=== PATIENT | male | born 1975 | race Caucasian/White ===

== ENCOUNTER 2017-09-23 03:11 | Inpatient (IN) | payer MEDICAID ==
[~2017-09-23] VITALS: Ht 167.6 cm; Wt 65.8 kg
--- NOTE | 2017-09-23 03:15 | NUR ---
PT TO ER BED 4. PT BIB [facility] FROM [facility] C/O CHEST PAIN X 45 MIN "ON AND OFF". 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 VSS/RESP EVEN UNLABORED/NAD NOTED/SKIN WARM AND DRY/DENIES N-V-D/ AFEBRILE/AOX4. AWAITING MD LECHUGA.
--- NOTE | 2017-09-23 03:20 | NUR ---
EMT AT BEDSIDE FOR EKG.
--- NOTE | 2017-09-23 03:45 | NUR ---
AT BEDSIDE FOR EVAL.
[2017-09-23] MEDS ORDERED: NITROGLYCERIN PACKET 1 GM PACKET ONE (03:51)
[2017-09-23] MEDS ORDERED: ASPIRIN 81 MG TAB.CHEW ONE (03:51)
[2017-09-23] MEDS ORDERED: ASPIRIN 81 MG TAB.CHEW PO ONE (04:00)
[2017-09-23] MEDS ORDERED: NITROGLYCERIN PACKET 1 GM PACKET TD ONE (04:00)
--- NOTE | 2017-09-23 04:07 | NUR ---
LAB AT BEDSIDE FOR DRAW.
[2017-09-23 04:09] LABS: BASOPHILS % (AUTO) 0.4 % (0.0-2.0); EOSINOPHILS % (AUTO) 17.2 % (0.0-6.0); HEMATOCRIT 37 % (39-51); HEMOGLOBIN 12.6 g/dL (13.5-17.5); MEAN CORPUSCULAR HEMOGLOBIN 32 PG (26.0-33.0); MEAN CORPUSCULAR HGB CONC 35 g/dl (31.0-36.0); MEAN CORPUSCULAR VOLUME 94 fL (80-96); MONOCYTES # (AUTO) 0.8 /CMM (0.1-1.30); MONOCYTES % (AUTO) 6.6 % (2.0-12.0); NEUTROPHILS # (AUTO) 6.8 /CMM (1.8-8.9); NEUTROPHILS % (AUTO) 58.8 % (43.0-81.0); PLATELET COUNT (AUTO) 278 /CMM (150-450); RDW COEFFICIENT OF VARIATION 13.7 (11.5-15.0); RED BLOOD CELL COUNT(AUTO) 3.89 MIL/uL (4.5-6.0); WHITE BLOOD COUNT (AUTO) 11.5 K/uL (4.3-11.0)
[2017-09-23 04:21] LABS: CALCIUM, SERUM 9.4 mg/dL (8.5-10.1); CARBON DIOXIDE 24 mmol/L (21-32); CHLORIDE 100 mmol/L (98-107); CREATININE 1.7 mg/dL (0.6-1.3); GLUCOSE 105 mg/dL (74-106); POTASSIUM 3.8 mmol/L (3.5-5.1); SODIUM SERUM 134 mmol/L (136-145); UREA NITROGEN, BLOOD 27 mg/dL (7-18)
[2017-09-23 04:26] LABS: INR 0.91 (0.87-1.13)
[2017-09-23 04:28] LABS: TROPONIN I < 0.017 ng/mL (0.00-0.056)
[2017-09-23 04:33] LABS: ALANINE AMINOTRANSFERASE 26 U/L (12-78); ALBUMIN 3.3 g/dL (3.4-5.0); ALKALINE PHOSPHATASE 111 U/L (46-116); ASPARTATE AMINOTRANSFERASE 12 U/L (15-37); B-TYPE NATRIURETIC PEPTIDE 58 PG/ML (0-125); BILIRUBIN,DIRECT 0.1 mg/dL (0.0-0.2); BILIRUBIN,TOTAL 0.3 mg/dL (0.2-1.0); TOTAL PROTEIN, SERUM 7.7 g/dL (6.4-8.2)
[2017-09-23 04:50] LABS: EOSINOPHILS % (MANUAL) 14 % (0-4); LYMPHOCYTES % (MANUAL) 17 % (16-48); MONOCYTES % (MANUAL) 5 % (0-11.0); NEUTROPHILS % (MANUAL) 64 (42-76)
--- NOTE | 2017-09-23 05:18 | NUR ---
PT RESTING QUIETLY, VSS/RESP EVEN UNLABORED. AROUSES EASILY TO VOICE.
--- NOTE | 2017-09-23 06:10 | NUR ---
PT TO CT VIA STRETCHER, VSS.
--- NOTE | 2017-09-23 06:30 | NUR ---
PT BACK FROM CT.
--- NOTE | 2017-09-23 07:23 | NUR ---
REPORT GIVEN TO REINALDO GIRARD FOR BARBER.
[2017-09-23] MEDS ORDERED: LACT10SO PO (07:37)
[2017-09-23] MEDS ORDERED: TOLT4CAP PO (07:37)
[2017-09-23] MEDS ORDERED: HYDR-552 PO (07:37)
[2017-09-23] MEDS ORDERED: CLON0.1T PO (07:37)
[2017-09-23] MEDS ORDERED: SIME80TA15 PO (07:37)
[2017-09-23] MEDS ORDERED: NA P133E RC (07:37)
[2017-09-23] MEDS ORDERED: ASCO500T9 PO (07:37)
[2017-09-23] MEDS ORDERED: LEVO50TA8 PO (07:37)
[2017-09-23] MEDS ORDERED: CYCL10TA9 PO (07:37)
[2017-09-23] MEDS ORDERED: PROM25TA15 PO (07:37)
[2017-09-23] MEDS ORDERED: FERR325T23 PO (07:37)
[2017-09-23] MEDS ORDERED: ACET-868 PO (07:37)
[2017-09-23] MEDS ORDERED: MULT-213 PO (07:37)
[2017-09-23] MEDS ORDERED: DOCU-141 PO (07:37)
[2017-09-23] MEDS ORDERED: POLY17PO4 PO (07:37)
[2017-09-23] MEDS ORDERED: BISA10SU8 RC (07:37)
[2017-09-23] MEDS ORDERED: THIA100T13 PO (07:37)
[2017-09-23] MEDS ORDERED: ENOX40DI SQ (07:37)
[2017-09-23] MEDS ORDERED: ASPI-1169 PO (07:37)
[2017-09-23] MEDS ORDERED: CRAN3875 PO (07:37)
[2017-09-23] MEDS ORDERED: CRAN425C6 PO (07:37)
[2017-09-23] MEDS ORDERED: IPRA3AMP IH (07:37)
[2017-09-23] MEDS ORDERED: MAGN400O6 PO (07:37)
[2017-09-23] MEDS ORDERED: MELA3TAB PO (07:37)
--- NOTE | 2017-09-23 08:34 | NUR ---
PAGED DR. SCHMIDT ([facility]) FOR DR BOWMAN
--- NOTE | 2017-09-23 08:41 | NUR ---
DR PARKER TALKING TO DR SCHMIDT.
[2017-09-23] MEDS ORDERED: ENOXAPARIN SODIUM 40 MG/0.4 ML DISP.SYRIN SQ SCH (09:30)
[2017-09-23] MEDS ORDERED: HYDROCODONE/APAP 5/325MG 1 EACH TABLET PO PRN ×3 (09:30→10:15)
[2017-09-23] MEDS ORDERED: ZOLPIDEM TARTRATE 5 MG TABLET PO PRN ×2 (09:30→10:15)
[2017-09-23] MEDS ORDERED: ONDANSETRON HCL/PF 4 MG/2 ML VIAL IVP PRN ×2 (09:30→10:15)
[2017-09-23] MEDS ORDERED: PROMETHAZINE HCL 25 MG TABLET PO PRN ×2 (09:30→10:15)
[2017-09-23] MEDS ORDERED: POLYETHYLENE GLYCOL 3350 17 GM POWD.PACK PO PRN ×2 (09:30→10:15)
[2017-09-23] MEDS ORDERED: BISACODYL SUPP (10 MG) 10 MG/SUPP.RECT SUPP.RECT RC PRN ×2 (09:30→10:15)
[2017-09-23] MEDS ORDERED: BISACODYL SUPP (10 MG) 10 MG/SUPP.RECT SUPP.RECT RC ONE ×3 (09:30→12:30)
[2017-09-23] MEDS ORDERED: Z GUARD REMEDY 2 OZ OINT TP PRN ×2 (09:30→10:15)
[2017-09-23] MEDS ORDERED: ACETAMINOPHEN 325 MG TABLET PO PRN ×2 (09:30→10:15)
[2017-09-23] MEDS ORDERED: MAGNESIUM CITRATE 296 ML BOTTLE PO ONE ×3 (09:30→12:30)
[2017-09-23] MEDS ORDERED: NA PHOS,M-B/NA PHOS,DI-BA 1 EA ENEMA RC PRN ×2 (09:30→10:15)
[2017-09-23] MEDS ORDERED: MAGNESIUM HYDROXIDE 30 ML UDC PO PRN ×4 (09:30→10:15)
[2017-09-23] MEDS ORDERED: MAG HYDROX/AL HYDROX/SIMETH 30 ML UDC PO PRN ×2 (09:30→10:15)
--- NOTE | 2017-09-23 09:48 | NUR ---
REPORT GIVEN TO MITA NAJERA FOR BARBER UPON ADMISSION.
[2017-09-23 10:00] VITALS: BP 131/86
--- NOTE | 2017-09-23 10:05 | NUR ---
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 A/O X 4. NO SIGNS OF ACUTE DISTRESS. NO COMPLAIN OF PAIN OR DISCOMFORT. QUADRIPLEGIC. INCONTINENT OF BOWEL AND BLADDER. NOTED WITH F/C, INTACT AND DRAINING WELL. ALL NEEDS ATTENDED TO. CALL LIGHT WITHIN REACH. WILL CONTINUE TO MONITOR TO ENSURE SAFETY.
--- NOTE | 2017-09-23 10:11 | NUR ---
TRANSFERRED TO FLOOR IN STABLE CONDIITION
[2017-09-23] MEDS ORDERED: POTASSIUM CHLORIDE 20 MEQ TAB.PRT.SR PO SCH ×2 (11:00→12:30)
[2017-09-23 11:44] LABS: THYROID STIMULATING HORMONE 2.809 uIU/mL (0.358-3.74)
[2017-09-23] MEDS ORDERED: CLONIDINE HCL 0.1 MG TABLET PO SCH (12:00)
[2017-09-23] MEDS: LACTULOSE 10 G/15 ML UDC (PYXIS) PO SCH ×2 (12:28→17:58)
[2017-09-23] MEDS: TOLTERODINE 2 MG TABLET PO SCH (12:28)
[2017-09-23] MEDS: SIMETHICONE 80 MG TAB.CHEW PO SCH ×2 (12:29→17:58)
[2017-09-23] MEDS: ENOXAPARIN SODIUM 40 MG/0.4 ML DISP.SYRIN SQ SCH (12:29)
[2017-09-23] MEDS: CLONIDINE HCL 0.1 MG TABLET PO SCH ×2 (12:30→17:58)
[2017-09-23] MEDS: CYCLOBENZAPRINE 10 MG TABLET PO SCH ×2 (12:30→17:58)
[2017-09-23] MEDS ORDERED: SIMETHICONE 80 MG TAB.CHEW PO SCH (13:00)
[2017-09-23] MEDS ORDERED: CYCLOBENZAPRINE 10 MG TABLET PO SCH (13:00)
[2017-09-23 13:04] VITALS: BP 131/86
[2017-09-23] MEDS: IV NS 0.9% 1,000 ML IV PRN (13:28)
[2017-09-23 16:00] VITALS: BP 127/84
[2017-09-23] MEDS: HYDROCODONE/APAP 5/325MG 1 EACH TABLET PO PRN (18:00)
--- NOTE | 2017-09-23 18:47 | NUR ---
MS/RN CLOSING NOTE PATIENT IN BED IN STABLE CONDITION. A/O X 3. NO SIGNS OF ACUTE DISTRESS. NO COMPLAIN OF PAIN OR DISCOMFORT. ALL NEEDS ATTENDED TO. CALL LIGHT WITHIN REACH. WILL ENDORSE TO NEXT SHIFT FOR CONTINUITY OF CARE.
--- NOTE | 2017-09-23 19:20 | NUR ---
RN OPENING NOTES PT RESTING IN BED. NO COMPLAINTS OF PAIN, SOB OR DISTRESS AT THIS TIME. SAFETY PRECAUTIONS IN PLACE. WILL CONTINUE TO MONITOR.
[2017-09-23 21:29] VITALS: BP 93/69
[2017-09-23] MEDS: DOCUSATE SODIUM 100 MG CAPSULE PO SCH (21:51)
[2017-09-23] MEDS ORDERED: Medication Not On Formulary EA (Melatonin 3 MG) PO SCH (22:00)
[2017-09-23] MEDS ORDERED: DOCUSATE SODIUM 100 MG CAPSULE PO SCH (22:00)
[2017-09-23] MEDS: IPRATROPIUM NEB FS 0.5 MG/2.5 ML AMPUL.NEB NEB SCH (23:29)
[2017-09-23] MEDS: ALBUTEROL FS 2.5 MG/0.5 ML VIAL.NEB NEB SCH (23:29)
[2017-09-24] MEDS: CLONIDINE HCL 0.1 MG TABLET PO SCH ×4 (00:56→18:51)
[2017-09-24] MEDS: IV NS 0.9% 1,000 ML IV PRN ×2 (04:36→20:32)
--- NOTE | 2017-09-24 07:04 | NUR ---
RN CLOSING NOTES PT AWAKE IN BED. NO COMPLAINTS OF PAIN, DISTRESS OR SOB. ALL NEEDS MET OVERNIGHT. SAFETY PRECAUTIONS IN PLACE. BED IN LOW, LOCKED POSITION, CALL LIGHT WITHIN REACH. WILL ENDORSE TO DAY SHIFT NURSE FOR CONTINUITY OF CARE.
[2017-09-24] MEDS ORDERED: LEVOTHYROXINE SODIUM 50 MCG TABLET PO SCH (07:30)
--- NOTE | 2017-09-24 07:30 | NUR ---
PT RECEIVED RESTING COMFORTABLY IN BED WITH EYES CLOSED. NO S/S OR C/O PAIN OR DISTRESS NOTED. SIDE RAILS UP X2, CALL LIGHT LEFT WITHIN REACH. WILL CONTINUE PLAN OF CARE.
[2017-09-24 08:00] VITALS: BP 105/67
[2017-09-24] MEDS: ALBUTEROL FS 2.5 MG/0.5 ML VIAL.NEB NEB SCH ×3 (08:23→23:30)
[2017-09-24] MEDS: IPRATROPIUM NEB FS 0.5 MG/2.5 ML AMPUL.NEB NEB SCH ×3 (08:23→23:30)
[2017-09-24] MEDS: ASCORBIC ACID 500 MG TABLET PO SCH (08:32)
[2017-09-24] MEDS: ASPIRIN 81 MG TAB.CHEW PO SCH (08:32)
[2017-09-24] MEDS: MULTIVIT, IRON, MIN NO. 8, FA 1 TAB PO SCH (08:32)
[2017-09-24] MEDS: CYCLOBENZAPRINE 10 MG TABLET PO SCH ×3 (08:33→18:50)
[2017-09-24] MEDS: LEVOTHYROXINE SODIUM 50 MCG TABLET PO SCH (08:33)
[2017-09-24] MEDS: FERROUS SULFATE (325 MG) 325 MG/TAB TABLET PO SCH (08:33)
[2017-09-24] MEDS: TOLTERODINE 2 MG TABLET PO SCH (08:33)
[2017-09-24] MEDS: THIAMINE HCL 100 MG TABLET PO SCH (08:33)
[2017-09-24] MEDS: ENOXAPARIN SODIUM 40 MG/0.4 ML DISP.SYRIN SQ SCH (08:34)
[2017-09-24] MEDS: SIMETHICONE 80 MG TAB.CHEW PO SCH ×3 (08:34→18:51)
[2017-09-24 08:40] LABS: BASOPHILS # (AUTO) 0.1 /CMM (0.0-0.2); BASOPHILS % (AUTO) 0.6 % (0.0-2.0); EOSINOPHILS # (AUTO) 1.5 /CMM (0.0-0.7); EOSINOPHILS % (AUTO) 15.6 % (0.0-6.0); HEMATOCRIT 35 % (39-51); HEMOGLOBIN 11.8 g/dL (13.5-17.5); LYMPHOCYTES # (AUTO) 1.6 /CMM (0.8-4.8); LYMPHOCYTES % (AUTO) 16.1 % (20.0-44.0); MEAN CORPUSCULAR HEMOGLOBIN 32 PG (26.0-33.0); MEAN CORPUSCULAR HGB CONC 34 g/dl (31.0-36.0); MEAN CORPUSCULAR VOLUME 95 fL (80-96); MONOCYTES # (AUTO) 0.7 /CMM (0.1-1.30); MONOCYTES % (AUTO) 7.3 % (2.0-12.0); NEUTROPHILS % (AUTO) 60.4 % (43.0-81.0); PLATELET COUNT (AUTO) 243 /CMM (150-450); RDW COEFFICIENT OF VARIATION 13.7 (11.5-15.0); RED BLOOD CELL COUNT(AUTO) 3.68 MIL/uL (4.5-6.0); WHITE BLOOD COUNT (AUTO) 9.9 K/uL (4.3-11.0)
[2017-09-24 08:56] LABS: TROPONIN I < 0.017 ng/mL (0.00-0.056)
[2017-09-24 08:58] LABS: ALANINE AMINOTRANSFERASE 29 U/L (12-78); ALBUMIN 3.1 g/dL (3.4-5.0); ALKALINE PHOSPHATASE 99 U/L (46-116); ASPARTATE AMINOTRANSFERASE 16 U/L (15-37); BILIRUBIN,TOTAL 0.2 mg/dL (0.2-1.0); CALCIUM, SERUM 8.9 mg/dL (8.5-10.1); CARBON DIOXIDE 24 mmol/L (21-32); CHLORIDE 107 mmol/L (98-107); CREATININE 1.5 mg/dL (0.6-1.3); GLUCOSE 90 mg/dL (74-106); MAGNESIUM 2.4 mg/dL (1.8-2.4); POTASSIUM 4.7 mmol/L (3.5-5.1); SODIUM SERUM 141 mmol/L (136-145); TOTAL PROTEIN, SERUM 7.2 g/dL (6.4-8.2); UREA NITROGEN, BLOOD 24 mg/dL (7-18)
[2017-09-24] MEDS ORDERED: Medication Not On Formulary EA (Cran/Vitc/Mannose/Inulin/Brom (Uti-Stat Liquid) 30 ML) PO SCH (09:00)
[2017-09-24] MEDS ORDERED: ASPIRIN 81 MG TAB.CHEW PO SCH (09:00)
[2017-09-24] MEDS ORDERED: Medication Not On Formulary EA (Cranberry Extract (Cranberry) 425 MG) PO SCH (09:00)
[2017-09-24] MEDS ORDERED: ENOXAPARIN SODIUM 40 MG/0.4 ML DISP.SYRIN SQ SCH ×2 (09:00)
[2017-09-24] MEDS ORDERED: FERROUS SULFATE (325 MG) 325 MG/TAB TABLET PO SCH (09:00)
[2017-09-24] MEDS ORDERED: THIAMINE HCL 100 MG TABLET PO SCH (09:00)
[2017-09-24] MEDS ORDERED: ASCORBIC ACID 500 MG TABLET PO SCH (09:00)
[2017-09-24] MEDS: LACTULOSE 10 G/15 ML UDC (PYXIS) PO SCH ×2 (10:46→18:50)
[2017-09-24 16:00] VITALS: BP 135/90
--- NOTE | 2017-09-24 19:05 | NUR ---
RN OPENING NOTES PT AWAKE AND RESTING IN BED. PT IS QUADRIPLEGIC. NO COMPLAINTS OF PAIN, DISTRESS, OR SOB AT THIS TIME. PT HAS A CANTOR INTACT AND DRAINING WELL. PT HAS RIGHT WRIST #20, PATENT AND INTACT. SAFETY PRECAUTIONS IN PLACE. BED IN LOW, LOCKED POSITION, X2SIDE RAILS UP. WILL CONTINUE TO MONITOR.
--- NOTE | 2017-09-24 19:15 | NUR ---
CHANGE OF SHIFT REPORT PT RESTING COMFORTABLY IN BED. NO S/S OR C/O PAIN OR DISTRESS NOTED. SIDE RAILS UP X2, CALL LIGHT LEFT WITHIN REACH. PT KEPT CLEAN, DRY, AND COMFORTABLE. NO SIGNIFICANT CHANGES SINCE PREVIOUS SHIFT.
[2017-09-24 20:00] VITALS: BP 113/78
[2017-09-24] MEDS: DOCUSATE SODIUM 100 MG CAPSULE PO SCH (21:51)
--- NOTE | 2017-09-25 00:20 | NUR ---
RN NOTES PT COMPLAINING OF HEAD PAIN LEVEL 8/10. PT REQUESTED PRN NORCO 5. WILL ADMINISTER AND CONTINUE TO MONITOR.
[2017-09-25] MEDS: CLONIDINE HCL 0.1 MG TABLET PO SCH ×3 (00:22→13:20)
[2017-09-25] MEDS: HYDROCODONE/APAP 5/325MG 1 EACH TABLET PO PRN (00:23)
--- NOTE | 2017-09-25 06:40 | NUR ---
RN CLOSING NOTES PT RESTING IN BED. PT QUADRIPLEGIC. PRIMARILY CITIZEN OF [place] SPE[place]. NO COMPLAINTS OF PAIN, DISTRESS OR SOB AT THIS TIME. PT HAS A CANTOR CATHETER INTACT AND DRAINING WELL. PT HAS A RIGHT WRIST IV #20 INTACT AND RUNNING NS @70ML/HR. PT TOLERATING FLUID WELL. SAFETY PRECAUTIONS IN PLACE. BED IN LOWEST, LOCKED POSITION, AND CALL LIGHT WITHIN REACH. ALL PATIENT NEEDS MET. WILL ENDORSE TO DAY SHIFT NURSE FOR CONTINUITY OF CARE.
[2017-09-25 08:00] VITALS: BP 141/81
[2017-09-25] MEDS: ALBUTEROL FS 2.5 MG/0.5 ML VIAL.NEB NEB SCH ×2 (08:32→15:26)
[2017-09-25] MEDS: IPRATROPIUM NEB FS 0.5 MG/2.5 ML AMPUL.NEB NEB SCH ×2 (08:32→15:26)
[2017-09-25] MEDS: MULTIVIT, IRON, MIN NO. 8, FA 1 TAB PO SCH (09:00)
--- NOTE | 2017-09-25 09:00 | NUR ---
RECEIVED PT. ALERT AND ORIENTED X 4.COOPERATIVE.
[2017-09-25] MEDS: TOLTERODINE 2 MG TABLET PO SCH (09:27)
[2017-09-25] MEDS: FERROUS SULFATE (325 MG) 325 MG/TAB TABLET PO SCH (09:28)
[2017-09-25] MEDS: ASPIRIN 81 MG TAB.CHEW PO SCH (09:28)
[2017-09-25] MEDS: CYCLOBENZAPRINE 10 MG TABLET PO SCH ×2 (09:28→13:20)
[2017-09-25] MEDS: LACTULOSE 10 G/15 ML UDC (PYXIS) PO SCH (09:28)
[2017-09-25] MEDS: LEVOTHYROXINE SODIUM 50 MCG TABLET PO SCH (09:28)
[2017-09-25] MEDS: THIAMINE HCL 100 MG TABLET PO SCH (09:28)
[2017-09-25] MEDS: SIMETHICONE 80 MG TAB.CHEW PO SCH ×2 (09:28→13:20)
[2017-09-25] MEDS: ASCORBIC ACID 500 MG TABLET PO SCH (09:28)
[2017-09-25] MEDS: ENOXAPARIN SODIUM 40 MG/0.4 ML DISP.SYRIN SQ SCH (09:29)
--- NOTE | 2017-09-25 10:38 | NUR ---
WOUND CARE CONSULT: PT SEEN FOR RT LOWER EYELID RAISED RED BUMP. DEFER TO . DISCUSSED SKIN PROTECTION RECOMMENDATIONS WITH NURSING STAFF. WILL SEE PRN. AKERS IN AGREEMENT WITH PLAN OF CARE. Addendum: 09/25/17 at 1040 by FITO SUN WNDNU Amended: Links added.
--- NOTE | 2017-09-25 11:40 | NUR ---
METER MECHANIC NOTED SCAB ABOVE RT. EYE,ANTIBIOTIC ORDERED.
[2017-09-25] MEDS ORDERED: MUPIROCIN OINT 2% 22 GM TUBE SCH (13:00)
[2017-09-25 13:20] VITALS: BP 134/85
--- NOTE | 2017-09-25 14:19 | NUR ---
PT. REFUSING DISCHARGE PHOTOS.
--- NOTE | 2017-09-25 16:15 | NUR ---
IN TO BE Krista CASTILLO TODAY TO REHAB UNIT.REPORT TO GA AT FACILITY,AND REPORT TO AMB. DRIVERS.HEP LOCK OUT.TAKEN VIA AMB, TO FACILITY.
== END 2017-09-25 16:46 | DRG 254 ==
LOC: ER 03:12 → MED 10:22
PROVIDERS: ADMIT Internal Medicine; ATTEND Internal Medicine
DX: K59.00 Constipation, unspecified (principal); N17.0 Acute kidney failure with tubular necrosis; E43 Unspecified severe protein-calorie malnutrition; J96.10 Chronic respiratory failure, unspecified whether with hypoxia or hypercapnia; R53.2 Functional quadriplegia; Z93.0 Tracheostomy status; E11.22 Type 2 diabetes mellitus with diabetic chronic kidney disease; D68.59 Other primary thrombophilia; D72.1 Eosinophilia; I12.9 Hypertensive chronic kidney disease with stage 1 through stage 4 chronic kidney disease, or unspecified chronic kidney disease; N18.9 Chronic kidney disease, unspecified; Z87.820 Personal history of traumatic brain injury; Z73.1 Type A behavior pattern; E03.9 Hypothyroidism, unspecified; K21.9 Gastro-esophageal reflux disease without esophagitis; D63.8 Anemia in other chronic diseases classified elsewhere; H02.9 Unspecified disorder of eyelid
CPT/HCPCS: 36415; 71045-TC; 80048-TC; 80053-TC; 80061-TC; 80076-TC; 82306; 82728-TC; 83540-TC; 83735-TC; 83880; 84100-TC; 84439-TC; 84443-TC; 84484-TC; 85025-TC; 85652-TC; 85730-TC; 87081-TC; 93307-TC; A4606; A6402; A6403; J1650; J7030; Q0169; Z7610